=== PATIENT | female | born 1985 | race American Indian/Alaskan Native ===

== ENCOUNTER 2017-06-03 18:13 | Emergency (ER) | payer MEDICAID ==
[2017-06-03] MEDS ORDERED: ASPIRIN PO ONE (18:38)
[2017-06-03] MEDS ORDERED: NORCO 5/325 PO ONE (18:49)
[2017-06-03 18:50] LABS: Basophils % (Auto) 0.7 % (0.0-1.8); Eosinophils # (Auto) 0.1 K/mm3 (0.0-0.4); Eosinophils % (Auto) 1.5 % (0.0-4.3); Hematocrit 38.6 % (30.3-42.9); Hemoglobin 12.7 gm/dl (10.1-14.3); Lymphocytes # (Auto) 2.4 K/mm3 (1.2-5.4); Lymphocytes % (Auto) 34.2 % (13.4-35.0); Mean Corpuscular HGB Conc 33 % (30-34); Mean Corpuscular Hemoglobin 31 pg (28-32); Mean Corpuscular Volume 95 fl (79-97); Monocytes # (Auto) 0.5 K/mm3 (0.0-0.8); Monocytes % (Auto) 7.1 % (0.0-7.3); Platelet Count 330 K/mm3 (140-440); Red Blood Count 4.06 M/mm3 (3.65-5.03); Red Cell Distribution Width 13.8 % (13.2-15.2)
--- NOTE | 2017-06-03 18:52 | Emergency Department Report ---
ED Chest Pain HPI - General Chief Complaint: Chest Pain Stated Complaint: CP/LEG PAIN Time Seen by Provider: 06/03/17 18:45 Source: patient Mode of arrival: Ambulatory Limitations: No Limitations - History of Present Illness Initial Comments: Mrs. Ortiz presents with mild left-sided chest pain which lasted several minutes. Dull nondescript. Pain is currently resolved. She also has right calf pain radiating to her right thigh. Mild cramping in nature. She is currently breast-feeding. She is 7 days status post vaginal delivery. MD Complaint: chest pain -: Sudden Onset: during rest Pain Location: left chest Pain Radiation: none Severity: mild Quality: dull Consistency: now resolved Worsens With: movement Context: other (vaginal delivery 05/27/2016) - Related Data Previous Rx's Medication Instructions Recorded Last Taken Type HYDROcodone/APAP 5-325 [Orick 1 each PO Q4HR #30 tablet 05/28/17 Unknown Rx 5/325] Allergies Allergy/AdvReac Type Severity Reaction Status Date / Time ibuprofen Allergy Unknown Shortness Verified 05/27/17 14:26 of Breath Heart Score - HEART Score History: Slightly suspicious EKG: Normal Age: < 45 Risk factors: No known risk factors Troponin: < normal limit HEART Score: 0 ED Review of Systems ROS: Stated complaint: CP/LEG PAIN Other details as noted in HPI Comment: All other systems reviewed and negative Respiratory: denies: cough Cardiovascular: denies: chest pain Gastrointestinal: denies: abdominal pain ED Past Medical Hx - Past Medical History Previous Medical History?: Yes Hx Hypertension: No Hx Congestive Heart Failure: No Hx Diabetes: Yes Hx Deep Vein Thrombosis: No Hx Renal Disease: No Hx Sickle Cell Disease: No Hx Seizures: No Hx Asthma: No Hx COPD: No Hx HIV: No Additional medical history: vaginal delivery x 5 - Surgical History Past Surgical History?: No - Social History Smoking Status: Never Smoker Substance Use Type: Prescribed, Other - Medications Home Medications: Home Medications Medication Instructions Recorded Confirmed Last Taken Type HYDROcodone/APAP 5-325 [Orick 1 each PO Q4HR #30 tablet 05/28/17 Unknown Rx 5/325] ED Physical Exam - General Limitations: No Limitations General appearance: alert, in no apparent distress - Head Head exam: Present: atraumatic, normocephalic - Eye Eye exam: Present: normal appearance - ENT ENT exam: Present: mucous membranes moist - Neck Neck exam: Present: normal inspection - Respiratory Respiratory exam: Present: normal lung sounds bilaterally. Absent: respiratory distress - Cardiovascular Cardiovascular Exam: Present: regular rate, normal rhythm. Absent: systolic murmur, diastolic murmur, rubs, gallop - GI/Abdominal GI/Abdominal exam: Present: soft, normal bowel sounds. Absent: distended, tenderness, guarding, rebound - Extremities Exam Extremities exam: Present: normal inspection. Absent: full ROM, tenderness, pedal edema, joint swelling, calf tenderness - Back Exam Back exam: Present: normal inspection - Neurological Exam Neurological exam: Present: alert, oriented X3 - Psychiatric Psychiatric exam: Present: normal affect, normal mood - Skin Skin exam: Present: warm, dry, intact, normal color. Absent: rash ED Course Vital Signs 06/03/17 06/03/17 06/03/17 18:34 19:15 19:56 Temperature 97.8 F 98.5 F Pulse Rate 64 66 Respiratory 18 20 20 Rate Blood Pressure 146/84 Blood Pressure 138/87 [Left] O2 Sat by Pulse 98 98 Oximetry ED Medical Decision Making - Lab Data Result diagrams: 06/03/17 18:42 06/03/17 18:42 - EKG Data -: EKG Interpreted by Me EKG shows normal: sinus rhythm, axis, intervals, QRS complexes, ST-T waves Rate: normal - Medical Decision Making chest pain and leg pain, post-. Patient denies chest pain or leg pain at this time. I did recommended CTA chest with elevated d-dimer. Patient declined the exam. She did wanted to continue to breastfeed her new baby. With normal heart rate and normal leg exam, VTE is not likely. Patient given strong return precautions. Critical care attestation.: If time is entered above; I have spent that time in minutes in the direct care of this critically ill patient, excluding procedure time. ED Disposition Clinical Impression: Chest pain Disposition: DC-01 TO HOME OR SELFCARE Is pt being admited?: No Does the pt Need Aspirin: No Condition: Stable Instructions: Chest Pain (ED) Time of Disposition: 21:36
[2017-06-03 19:04] LABS: BUN/Creatinine Ratio 14; Blood Urea Nitrogen 10 mg/dL (7-17); Calcium 8.6 mg/dL (8.4-10.2); Hemolysis Index 1
[2017-06-03 19:24] LABS: INR 0.93 (0.87-1.13)
[2017-06-03 19:25] LABS: Partial Thromboplastin Time 29.7 Sec. (24.2-36.6)
[2017-06-03 21:55] VITALS: BP 125/87
== END 2017-06-03 21:57 | disposition home or self-care (01) ==
LOC: EEVIPCON 18:13 → ED 18:13
DX: R07.89 Other chest pain (principal); E11.9 Type 2 diabetes mellitus without complications; Z88.6 Allergy status to analgesic agent
CPT/HCPCS: 36415; 80048; 84484; 85025; 85379; 85610; 85730; 93005; 93010; 99284